=== PATIENT | male | born 1980 | race Caucasian/White ===

== ENCOUNTER 2024-08-04 11:19 | Outpatient (OUT) | payer OTHER, SELFPAY ==
--- NOTE | 2024-08-04 11:39 | XR_ITS ---
The [address] [address] Patient Name: FARZAD PICKETT MRN: [id number] date: 1980 Sex: M Assigned Patient Location: LAB Current Patient Location: LAB Accession/Order Number: [id number] Exam Date: 08/04/2024 11:40 Report Date: 08/04/2024 12:28 At the request of: MARILU ROCHA Procedure: XR chest 2V EXAM: Chest x-ray HISTORY: . Hemoptysis R04.2 . COMPARISON: None. TECHNIQUE: Single view of the chest FINDINGS: Heart is mildly enlarged with a biventricular contour. There is slight prominence of the bronchovascular markings. Lungs are free of focal infiltrates. No pleural effusions are noted. No bony abnormality is appreciated. XR/XR chest 2V IMPRESSION: 1. Mild cardiac enlargement. 2. Slight prominence of the bronchovascular markings. Findings could be chronic. Bronchitis or less likely an early interstitial pneumonitis cannot be excluded. Clinical correlation is suggested. Electronically authenticated by: FARZAD TORREZ Date: 08/04/2024 12:28
[2024-08-04 12:03] LABS: Hematocrit 45.6 % (42.0-54.0); Hemoglobin 15.1 g/dL (14.0-18.0); Mean Corpuscular HGB Conc 33.1 g/dL (29.9-35.2); Mean Corpuscular Volume 93.6 fL (80.0-94.0); Mean Platelet Volume 11.4 fL (9.5-13.5); Platelet Count 256 10^3/uL (150-450); Red Blood Count 4.87 10^6/uL (4.70-6.10); Red Cell Distribution Width 15.9 % (11.0-15.0); White Blood Count 12.1 10^3/uL (4.0-11.0)
[2024-08-04 13:00] LABS: D Dimer 1.38 mg/L FEU (<=0.59)
[2024-08-04 13:29] LABS: Lymphocytes Absolute Manual 1.45 10^3/uL (1.20-3.80); Monocytes Absolute Manual 0.96 10^3/uL (0.30-0.80); Segmented Neut Absolute Manual 9.68 10^3/uL (1.4-6.5)
== END 2024-08-04 11:20 | disposition home or self-care (01) ==
PROVIDERS: PCP Family Medicine; Visit Provider Nurse Practitioner Family
DX: R04.2 Hemoptysis (principal); I51.7 Cardiomegaly
CPT/HCPCS: 36415; 71046; 85007; 85027; 85378

== ENCOUNTER 2024-08-04 13:41 | Emergency (ER) | payer OTHER, SELFPAY ==
[2024-08-04] VITALS (16 sets, daily range): BP systolic 109–115; BP diastolic 74–90; PULSE 109–117; TEMP 37; O2SAT 91–98; BMI 25.7
--- NOTE | 2024-08-04 14:01 | ECG_ITS ---
The [facility] Test Date: 2024-08-04 Pat Name: FARZAD SINGH Department: Room: - Gender: Male Billing Department Supervisor: : 1980 Requested By: RONAL DOWD Order Number: [id number] Reading MD: ROBERT JOYNER Measurements Intervals [place] Rate: 115 P: 58 CT: 146 QRS: 104 QRSD: 88 T: -74 QT: 362 QTc: 430 Interpretive Statements 1120 Sinus tachycardia [address] depression 4564 Twave abnormality, possible lateral ischemia 4664 Twave abnormality, possible inferior ischemia 5120 Possible right ventricular hypertrophy 6120 Possible right atrial enlargement 9150 abnormal ECG No previous ECG available for comparison Electronically Signed On 08-09-2024 7:05:27 EST by ROBERT JOYNER
--- NOTE | 2024-08-04 14:10 | CT_ITS ---
The [address] [address] Patient Name: FARZAD SINGH MRN: [id number] date: 1980 Sex: M Assigned Patient Location: ER Current Patient Location: ER Accession/Order Number: [id number] Exam Date: 08/04/2024 14:32 Report Date: 08/04/2024 15:32 At the request of: XU PETERSEN Procedure: CT angio chest EXAM: CT angio chest HISTORY: elevated d dimer, h/o shortness of breath COMPARISON: None. TECHNIQUE: CT chest with intravenous contrast was performed with timing for the evaluation for pulmonary arteries. Multiplanar reformats were performed. MIP (maximum intensity projection) images or 3D post processing was performed. Dose reduction techniques were achieved by using automated exposure control and/or adjustment of mA and/or kV according to patient size and/or use of iterative reconstruction technique. FINDINGS: Lungs: No pneumothorax. Small left pleural effusion with left lower lobe groundglass attenuations and consolidations, representing pneumonia and possible pulmonary infarction. Airways: Normal. Mediastinum: No adenopathy. Aorta: No aneurysm. Cardiac: Cardiomegaly. No pericardial effusion. Pulmonary vasculature: Filling defect is noted within the segmental branches of the bilateral lower lobes and right upper lobe. Bones: No acute bony abnormality. Axilla: No adenopathy. Thyroid gland: No abnormality demonstrated on provided imaging. Soft tissues: Unremarkable. Upper abdomen: Unremarkable. Additional findings: None. CT/CT angio chest IMPRESSION: Acute pulmonary embolism involving segmental branches of the right upper lobe and bilateral lower lobes. Cardiomegaly. Small left pleural effusion with left lower lobe groundglass attenuations and consolidations, representing pneumonia and possible superimposed pulmonary infarction. Critical results were NOTIFIED by TELEPHONE BY Dr. Jennifer Rutledge MD to MD SOY At 08/04/2024 3:22 PM EST. Electronically authenticated by: JENNIFER RUTLEDGE Date: 08/04/2024 15:32
[2024-08-04] MEDS: IPRATROPIUM/ALBUTEROL SULFATE 3 ML AMPUL.NEB IH (14:21)
[2024-08-04 14:48] LABS: INR 1.31; Partial Thromboplastin Time 26.2 sec (22.3-36.2); Prothrombin Time 13.5 sec (9.0-11.6)
[2024-08-04 14:53] LABS: Alanine Aminotransferase 58 U/L (16-63); Albumin Globulin Ratio 0.9; Alkaline Phosphatase 75 U/L (46-116); Anion Gap 18.2; Aspartate Amino Transferase 42 U/L (15-37); BUN Creatinine Ratio 16.5; Bilirubin Total 1.6 mg/dL (0.2-1.0); Calcium 8.9 mg/dL (8.5-10.1); Carbon Dioxide 21.8 mmol/L (21.0-32.0); Chloride 101 mmol/L (98-107); Estimated GFR (African America >60 (>=60 mL/min/1.73m^2); Estimated GFR (Non-African Ame >60 (>=60 mL/min/1.73m^2); Globulin 3.3 g/dL; Glucose 115 mg/dL (74-106); Sodium 137 mmol/L (136-145); Total Protein 6.3 g/dL (6.4-8.2)
[2024-08-04 14:55] LABS: Troponin I High Sensitivity 12.7 pg/mL (4.0-76.1)
--- NOTE | 2024-08-04 16:02 | ED_ITS ---
Documented by User: Martha Rizvi 08/04/24 16:08 HPI HPI - General Adult General Chief complaint: Shortness of Breath/Dyspnea Stated complaint: abnormal lab values Time Seen by Provider: 08/04/24 14:10 Mode of arrival: walk-in History of Present Illness HPI narrative: 43-year-old male presents here with chief complaint of shortness of breath. Patient states she had blood work performed and ordered by his primary care physician today for chronic bronchitis cough congestion. He states he has had small amount of coughing up blood over the last 2 to 3 days. This morning had a coughing fit and did have increased amount of bright red blood in his sputum. His D-dimer was elevated and his primary care physician instructed him to come to the emergency room to have a CT scan performed. Patient vital signs are stable he is not hypoxic. He is not a smoker. Denies a known history of pulmonary embolisms in the past. He states he is finished a course of antibiotics was given steroids earlier this week and became agitated with steroids and given a shot of Kenalog. Primary care physician gave him Levaquin and albuterol inhaler today as well. Patient is here for CTA. Related Data Previous Rx's ?Medication ?Instructions ?Recorded albuterol sulfate 2.5 mg/3 mL 1.25 mg (1.5 mL) inhalation Q8H 08/04/24 (0.083 %) solution for nebulization PRN bronchospasm #75 mL apixaban 5 mg (74 tabs) tablets in 5 mg PO BID 30 days #60 ea 08/04/24 a dose pack (Eliquis DVT-PE Treat 30D Start) Allergies Allergy/AdvReac Type Severity Reaction Status Date / Time No Known Drug Allergies Allergy Verified 08/04/24 13:49 Opioid HPI Opioid Management Most Recent Opioid Data: No Data to Display Review of Systems ROS Narrative All Systems are negative except as noted/marked. PFSH PFSH Social History Little interest or pleasure in doing things: not at all Feeling down, depressed, or hopeless: not at all Exam Narrative Exam Narrative: Nurses note and vital signs reviewed and patient is not hypoxic. General: The patient appears well and in no apparent distress. Patient is resting comfortably on cart. Skin: Warm, dry, no pallor noted. There is no rash noted. Head: Normocephalic, atraumatic Eye: Normal conjunctiva, no drainage, EOMI. PERRL Ears, Nose, Mouth, and Throat: oral mucosa is moist. Nares patent. Mouth without vesicles. Ear canals patent. Tm's without Erythema Cardiovascular: Regular Rate and Rhythm Respiratory: Patient is in no distress, no accessory muscle use, lungs are clear to auscultation, no wheezing, rales or rhonchi Back: non-tender, no CVA tenderness bilaterally to percussion. GI: Normal bowel sounds, no tenderness to palpation, no masses appreciated. No rebound, guarding, or rigidity noted. Musculoskeletal: The patient has no evidence of calf tenderness, no pitting edema, symmetrical pulses noted bilaterally Neurological: A&O x4, normal speech Psychiatric: Cooperative Constitutional Vital Signs, click to edit/add: Last Vital Signs Temp 98.6 F 08/04/24 13:49 Pulse 112 H 08/04/24 15:50 Resp 12 08/04/24 14:20 BP 110/81 08/04/24 15:45 Pulse Ox 93 L 08/04/24 15:50 O2 Del Method Room Air 08/04/24 14:23 Course Vital Signs Vital signs: Vital Signs Temperature 98.6 F 08/04/24 13:49 Pulse Rate 117 H 08/04/24 13:49 Respiratory Rate 18 08/04/24 13:49 Blood Pressure 115/90 08/04/24 13:49 Pulse Oximetry 96 08/04/24 13:49 Temperature 98.6 F 08/04/24 13:49 Pulse Rate 112 H 08/04/24 15:50 Respiratory Rate 12 08/04/24 14:20 Blood Pressure 110/81 08/04/24 15:45 Pulse Oximetry 93 L 08/04/24 15:50 Oxygen Delivery Method Room Air 08/04/24 14:23 Medical Decision Making MDM Narrative Medical decision making narrative: 43-year-old male presents here with chief complaint of shortness of breath. Patient states she had blood work performed and ordered by his primary care physician today for chronic bronchitis cough congestion. He states he has had small amount of coughing up blood over the last 2 to 3 days. This morning had a coughing fit and did have increased amount of bright red blood in his sputum. His D-dimer was elevated and his primary care physician instructed him to come to the emergency room to have a CT scan performed. Patient vital signs are stable he is not hypoxic. He is not a smoker. Denies a known history of pulmonary embolisms in the past. He states he is finished a course of antibiotics was given steroids earlier this week and became agitated with steroids and given a shot of Kenalog. Primary care physician gave him Levaquin and albuterol inhaler today as well. Patient is here for CTA. The emergency room vital signs are stable patient was not hypoxic. He CT scan was ordered including CMP and troponin. CMP and troponin are unremarkable. CT scan was read as having pulmonary as well as him did a right upper segmental branches and lower lobes. Patient also has what appears to be pneumonia. White blood cell count was slightly elevated here today as well. Patient had outpatient lab work performed as well as a lab work I ordered here. He did have a D-dimer noted. Which did lead to him having a CTA of his chest. Patient was given a breathing treatment here today. He has a breathing machine at home that his mom has he is going to have albuterol nebulizers at home. Primary care physician gave him antibiotics Levaquin and an inhaler today as well he is also had a course of steroids injection of IM Kenalog recently. Patient was made aware of his results. I did speak to Dr. Dowd his primary care physician and he is going to follow-up with the patient patient instructed to follow-up in the office on Wednesday. Patient will be given a prescription for Eliquis as well as prescription for Eliquis and a coupon for Eliquis. Patient verbalized understanding agrees with plan of care mom is also a nurse and understands patient's diagnoses. 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 Differential Diagnosis Differential Diagnosis: shortness of breath, Bronchitis, pulmonary embolism Medical Records Medical records reviewed: Yes I reviewed the patient's medical records Lab Data Lab results reviewed: Yes I reviewed the patient's lab results Labs: Lab Results 08/04/24 Range/Units 14:10 PT 13.5 H (9.0-11.6) sec INR 1.31 APTT 26.2 (22.3-36.2) sec Sodium 137 (136-145) mmol/L Potassium 4.0 (3.5-5.1) mmol/L Chloride 101 (98-107) mmol/L Carbon Dioxide 21.8 (21.0-32.0) mmol/L Anion Gap 18.2 BUN 16.0 (7.0-18.0) mg/dL Creatinine 0.97 (0.70-1.30) mg/dL Est GFR ( Amer) >60 (>=60 mL/min/1.73m^2) Est GFR (Non-Af Amer) >60 (>=60 mL/min/1.73m^2) BUN/Creatinine Ratio 16.5 Glucose 115 H (74-106) mg/dL Calcium 8.9 (8.5-10.1) mg/dL Total Bilirubin 1.6 H (0.2-1.0) mg/dL AST 42 H (15-37) U/L ALT 58 (16-63) U/L Alkaline Phosphatase 75 (46-116) U/L Troponin I High Sens 12.7 (4.0-76.1) pg/mL Total Protein 6.3 L (6.4-8.2) g/dL Albumin 3.0 L (3.4-5.0) g/dL Globulin 3.3 g/dL Albumin/Globulin Ratio 0.[address] scan - chest: Radiologist's impression: ITS Impressions Chest CTA 08/04/24 14:10 IMPRESSION: Acute pulmonary embolism involving segmental branches of the right upper lobe and bilateral lower lobes. Cardiomegaly. Small left pleural effusion with left lower lobe groundglass attenuations and consolidations, representing pneumonia and possible superimposed pulmonary infarction. Critical results were NOTIFIED by TELEPHONE BY Dr. Jennifer Rutledge MD to MD SOY At 08/04/2024 3:22 PM EST. Electronically authenticated by: JENNIFER RUTLEDGE Date: 08/04/2024 15:32 ECG Data Interpretation: 1401 Sinus tachycardia with 350 bpm, OH interval 146 ms QRS duration 88 ms, ST depression inverted T waves noted. Artifact noted. Discharge Plan Discharge Chief Complaint: Shortness of Breath/Dyspnea Clinical Impression: Pulmonary embolism, Pneumonia Patient Disposition: Home, Self-Care Time of Disposition Decision: 15:51 Condition: Good Prescriptions / Home Meds: New albuterol sulfate 2.5 mg /3 mL (0.083 %) solution for nebulization 1.25 mg inhalation Q8H PRN (Reason: bronchospasm) Qty: 75 0RF Eliquis DVT-PE Treat 30D Start 5 mg (74 tabs) tablets,dose pack 5 mg PO BID 30 Days Qty: 60 0RF Rx Instructions: Use generic tablets if needed if starter pack is too expensive. Correct dosing is 10 mg twice per day x 7 days. Then lower your dosage to 5 mg twice per day thereafter. Print Language: Thai Instructions: Pulmonary Embolism (ED), Pneumonia (ED) Additional Instructions: call wednesday for follow up appointment Referrals: RONAL DOWD [Primary Care Provider] - 08/07/24 (call wednesday for appointment ) Discharge Date/Time: 08/04/24 16:36 Documented by User: Sami Gardner MD 08/04/24 17:33 HPI HPI - General Adult General Chief complaint: Shortness of Breath/Dyspnea Stated complaint: abnormal lab values Time Seen by Provider: 08/04/24 14:10 Related Data Previous Rx's ?Medication ?Instructions ?Recorded albuterol sulfate 2.5 mg/3 mL 1.25 mg (1.5 mL) inhalation Q8H 08/04/24 (0.083 %) solution for nebulization PRN bronchospasm #75 mL apixaban 5 mg (74 tabs) tablets in 5 mg PO BID 30 days #60 ea 08/04/24 a dose pack (Eliquis DVT-PE Treat 30D Start) Allergies Allergy/AdvReac Type Severity Reaction Status Date / Time No Known Drug Allergies Allergy Verified 08/04/24 13:49 Opioid HPI Opioid Management Most Recent Opioid Data: No Data to Display PFSH PFSH Social History Little interest or pleasure in doing things: not at all Feeling down, depressed, or hopeless: not at all Exam Constitutional Vital Signs, click to edit/add: Last Vital Signs Temp 98.6 F 08/04/24 13:49 Pulse 112 H 08/04/24 15:50 Resp 12 08/04/24 14:20 BP 110/81 08/04/24 15:45 Pulse Ox 93 L 08/04/24 15:50 O2 Del Method Room Air 08/04/24 14:23 Course Vital Signs Vital signs: Vital Signs Temperature 98.6 F 08/04/24 13:49 Pulse Rate 117 H 08/04/24 13:49 Respiratory Rate 18 08/04/24 13:49 Blood Pressure 115/90 08/04/24 13:49 Pulse Oximetry 96 08/04/24 13:49 Temperature 98.6 F 08/04/24 13:49 Pulse Rate 112 H 08/04/24 15:50 Respiratory Rate 12 08/04/24 14:20 Blood Pressure 110/81 08/04/24 15:45 Pulse Oximetry 93 L 08/04/24 15:50 Oxygen Delivery Method Room Air 08/04/24 14:23 Medical Decision Making MDM Narrative Medical decision making narrative: 43-year-old male presents here with chief complaint of shortness of breath. Patient states she had blood work performed and ordered by his primary care physician today for chronic bronchitis cough congestion. He states he has had small amount of coughing up blood over the last 2 to 3 days. This morning had a coughing fit and did have increased amount of bright red blood in his sputum. His D-dimer was elevated and his primary care physician instructed him to come to the emergency room to have a CT scan performed. Patient vital signs are stable he is not hypoxic. He is not a smoker. Denies a known history of pulmonary embolisms in the past. He states he is finished a course of antibiotics was given steroids earlier this week and became agitated with steroids and given a shot of Kenalog. Primary care physician gave him Levaquin and albuterol inhaler today as well. Patient is here for CTA. The emergency room vital signs are stable patient was not hypoxic. He CT scan was ordered including CMP and troponin. CMP and troponin are unremarkable. CT scan was read as having pulmonary as well as him did a right upper segmental branches and lower lobes. Patient also has what appears to be pneumonia. White blood cell count was slightly elevated here today as well. Patient had outpatient lab work performed as well as a lab work I ordered here. He did have a D-dimer noted. Which did lead to him having a CTA of his chest. Patient was given a breathing treatment here today. He has a breathing machine at home that his mom has he is going to have albuterol nebulizers at home. Primary care physician gave him antibiotics Levaquin and an inhaler today as well he is also had a course of steroids injection of IM Kenalog recently. Patient was made aware of his results. I did speak to Dr. Dowd his primary care physician and he is going to follow-up with the patient patient instructed to follow-up in the office on Wednesday. Patient will be given a prescription for Eliquis as well as prescription for Eliquis and a coupon for Eliquis. Patient verbalized understanding agrees with plan of care mom is also a nurse and understands patient's diagnoses. 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 I, Dr Gardner, have reviewed the above progress note and course of action in the ER; agree with the above. I have personally seen and evaluated this patient, gone over history and physical, and discussed disposition and treatment plan with the patient. I, Dr. Gardner, has spoken to the patient for 15 minutes prior to discharge with Faith GIMENEZ at bedside as a witness along with mother at bedside the entire time. Patient is aware of cardiomegaly on his x-ray finding. I gave patient a copy of his EKG and discussed the abnormal findings on the EKG. Education on pulmonary embolism was done with patient as well. Patient will start taking Eliquis. Patient will call Dr. Dowd on Wednesday to follow-up and also be referred to cardiology for further testing if needed. We have discussed the need for outpatient stress testing and echocardiogram, also in light of patient's brother has cardiomyopathy and other cardiac issues. We discussed possibility of genetic testing for PE if indicated. Patient understands importance of following up with PCP, having additional cardiac testing done in light of having bilateral PE, pneumonia, but also cardiomegaly and EKG changes. Patient and mother understand this very clearly. Patient's mother is a retired [employer] from Dr. [facility]ache[facility] office as well. They were given a copy of the EKG for patient records. Lab Data Labs: Lab Results 08/04/24 Range/Units 14:10 PT 13.5 H (9.0-11.6) sec INR 1.31 APTT 26.2 (22.3-36.2) sec Sodium 137 (136-145) mmol/L Potassium 4.0 (3.5-5.1) mmol/L Chloride 101 (98-107) mmol/L Carbon Dioxide 21.8 (21.0-32.0) mmol/L Anion Gap 18.2 BUN 16.0 (7.0-18.0) mg/dL Creatinine 0.97 (0.70-1.30) mg/dL Est GFR ( Amer) >60 (>=60 mL/min/1.73m^2) Est GFR (Non-Af Amer) >60 (>=60 mL/min/1.73m^2) BUN/Creatinine Ratio 16.5 Glucose 115 H (74-106) mg/dL Calcium 8.9 (8.5-10.1) mg/dL Total Bilirubin 1.6 H (0.2-1.0) mg/dL AST 42 H (15-37) U/L ALT 58 (16-63) U/L Alkaline Phosphatase 75 (46-116) U/L Troponin I High Sens 12.7 (4.0-76.1) pg/mL Total Protein 6.3 L (6.4-8.2) g/dL Albumin 3.0 L (3.4-5.0) g/dL Globulin 3.3 g/dL Albumin/Globulin Ratio 0.[address] scan - chest: Radiologist's impression: ITS Impressions Chest CTA 08/04/24 14:10 IMPRESSION: Acute pulmonary embolism involving segmental branches of the right upper lobe and bilateral lower lobes. Cardiomegaly. Small left pleural effusion with left lower lobe groundglass attenuations and consolidations, representing pneumonia and possible superimposed pulmonary infarction. Critical results were NOTIFIED by TELEPHONE BY Dr. Jennifer Rutledge MD to MD SOY At 08/04/2024 3:22 PM EST. Electronically authenticated by: JENNIFER RUTLEDGE Date: 08/04/2024 15:32 Discharge Plan Discharge Chief Complaint: Shortness of Breath/Dyspnea Clinical Impression: Pulmonary embolism, Pneumonia Patient Disposition: Home, Self-Care Time of Disposition Decision: 15:51 Condition: Good Prescriptions / Home Meds: New albuterol sulfate 2.5 mg /3 mL (0.083 %) solution for nebulization 1.25 mg inhalation Q8H PRN (Reason: bronchospasm) Qty: 75 0RF Eliquis DVT-PE Treat 30D Start 5 mg (74 tabs) tablets,dose pack 5 mg PO BID 30 Days Qty: 60 0RF Rx Instructions: Use generic tablets if needed if starter pack is too expensive. Correct dosing is 10 mg twice per day x 7 days. Then lower your dosage to 5 mg twice per day thereafter. Print Language: Thai Instructions: Pulmonary Embolism (ED), Pneumonia (ED) Additional Instructions: call wednesday for follow up appointment Referrals: RONAL DOWD [Primary Care Provider] - 08/07/24 (call wednesday for appointment ) Discharge Date/Time: 08/04/24 16:36
== END 2024-08-04 16:36 | disposition home or self-care (01) ==
PROVIDERS: Physician Assistant; Emergency Provider Emergency Medicine; PCP Family Medicine
DX: I26.99 Other pulmonary embolism without acute cor pulmonale (principal); J18.9 Pneumonia, unspecified organism; R04.2 Hemoptysis; I51.7 Cardiomegaly; R06.02 Shortness of breath
CPT/HCPCS: 36415; 71046; 71275; 80053; 84484; 85007; 85027; 85378; 85610; 85730; 93005; 94640; 99285; Q9967